=== PATIENT | female | born 2000 | race Hispanic/Latino ===

== ENCOUNTER 2023-05-11 07:29 | Outpatient (CLI) | payer OTHER | END 2023-05-11 07:30 | disposition home or self-care (01) | LOC: CSHULT 07:29 | PROVIDERS: ATTEND Nurse Practitioner Women's Health | DX: O09.892 Supervision of other high risk pregnancies, second trimester (principal); Z3A.20 20 weeks gestation of pregnancy | CPT/HCPCS: 76805 ==

== ENCOUNTER 2023-08-11 06:03 | Observation (INO) | payer OTHER ==
[2023-08-11] MEDS ORDERED: Ondansetron PF 4 MG/2 ML Vial ONE (07:08)
[2023-08-11 07:15] VITALS: BMI 46.4
[2023-08-11 07:51] LABS: Fetal Membranes Rupture No Membranes Rupture (No Rupture)
[2023-08-11] MEDS ORDERED: Ondansetron PF 4 MG/2 ML Vial IVP PRN ×2 (07:52→09:21)
[2023-08-11] MEDS ORDERED: hydrALAZINE 20 MG/ML VIAL SLOW IVP PRN ×2 (07:52→09:21)
[2023-08-11] MEDS ORDERED: Lactated Ringer's 1,000 ML IV SCH (08:00)
[2023-08-11] MEDS ORDERED: Promethazine HCl 25 MG/ML VIAL IVPB PRN (09:21)
[2023-08-11] MEDS ORDERED: Acetaminophen 500 MG TAB PO PRN (09:21)
[2023-08-11] MEDS ORDERED: fentaNYL 50 mcg/mL 1 mL Vial SLOW IVP PRN (09:21)
[2023-08-11 10:46] LABS: #Eosinphils 0.1 10x3/uL (0.0-0.5); #Monocytes 0.7 10x3/uL (0.0-1.1); #Neutrophils 10.6 10x3/uL (1.5-8.4); %Basophils 0.2 % (0.0-2.0); %Eosinophils 0.5 % (0.0-6.0); %Lymphocytes 13.9 % (18.0-47.0); %Monocytes 5.1 % (0.0-10.0); %Neutrophils 79.6 % (40.0-75.0); Hematocrit 38.6 % (34.9-44.5); Hemoglobin 12.9 g/dL (12.0-15.5); Mean Corpuscular HGB CONC 33.4 g/dL (32.0-36.0); Mean Corpuscular Hemoglobin 28.4 pg (27.0-33.0); Mean Corpuscular Volume 84.8 fl (81.6-98.3); Mean Platelet Volume 12.2 fl (7.4-10.4); Platelet Count 225 10x3/uL (150-450); RBC Distribution Width 13.6 % (11.5-14.5); Red Blood Cell (RBC) Count 4.55 10x6/uL (3.90-5.03); White Blood Cell (WBC) Count 13.2 10x3/uL (3.5-10.5)
[2023-08-11 10:49] LABS: ALT (SGPT) 32 U/L (8-55); AST (SGOT) 21 U/L (5-34); Albumin 3.3 g/dL (3.5-5.0); Alkaline Phosphatase 231 U/L (40-110); Anion Gap 16 mmol/L (10-20); BUN (Urea Nitrogen) 4 mg/dL (7.0-18.7); Bilirubin, Total 0.2 mg/dL (0.2-1.2); Calc. Creatinine Clearance 281 mL/min (70-130); Calcium 8.7 mg/dL (7.8-10.44); Carbon Dioxide 19 mmol/L (22-29); Chloride 107 mmol/L (98-107); Estimated GFR 131; Globulin 2.9 g/dL (2.4-3.5); Glucose 112 mg/dL (70-105); Potassium 4.1 mmol/L (3.5-5.1); Protein, Total 6.2 g/dL (6.0-8.3); Sodium 138 mmol/L (136-145)
[2023-08-11 11:20] LABS: SARS-CoV-2 NAA Rapid Test Not Detected (NotDetected)
[2023-08-11] MEDS ORDERED: Promethazine HCl 25 MG in Sodium Chloride 0.9% 50 ML IVPB PRN (11:22)
[2023-08-11] MEDS ORDERED: Fleet Saline Enema 133 ML BOT PR SCH (11:30)
== END 2023-08-11 14:35 | disposition home health service (06) ==
LOC: CSHLD/OP 06:03 → CSHLD 10:38
PROVIDERS: ADMIT Family Medicine; ATTEND Family Medicine
DX: O99.891 Other specified diseases and conditions complicating pregnancy (principal); R10.84 Generalized abdominal pain; O13.3 Gestational [pregnancy-induced] hypertension without significant proteinuria, third trimester; O21.2 Late vomiting of pregnancy; O24.410 Gestational diabetes mellitus in pregnancy, diet controlled; O99.213 Obesity complicating pregnancy, third trimester; E66.01 Morbid (severe) obesity due to excess calories; O34.211 Maternal care for low transverse scar from previous cesarean delivery; Z79.899 Other long term (current) drug therapy; Z91.010 Allergy to peanuts; Z88.2 Allergy status to sulfonamides; Z3A.33 33 weeks gestation of pregnancy
CPT/HCPCS: 76705; 76815; 76819; 80053; 83690; 84112; 85025; J2405

== ENCOUNTER 2023-09-02 10:05 | Inpatient (IN) | payer OTHER ==
[2023-09-01 13:06] LABS: Hematocrit 39.3 % (34.9-44.5); Hemoglobin 13.3 g/dL (12.0-15.5); Platelet Count 202 10x3/uL (150-450)
[2023-09-01 13:34] LABS: Syphilis Antibody Nonreactive (Nonreactive); Syphilis Antibody Index 0.08 S/CO (<1.00 Non-Reactive)
[2023-09-01 13:35] LABS: HBSAg Index 0.16 S/CO (0-0.99); Hep B Surf Ag Non-Reactive S/CO (NonReactive)
[2023-09-02] MEDS ORDERED: Oxytocin 30 units/NS 500 ML 500 ML IV SCH (10:41)
[2023-09-02] MEDS ORDERED: Azithromycin 500 MG in Sodium Chloride 0.9% 250 ML 250 ML IVPB SCH (10:41)
[2023-09-02] MEDS ORDERED: Bicitra 30 ML UDCUP PO PRN (10:41)
[2023-09-02] MEDS ORDERED: Methylergonovine 0.2 MG/ML VIAL IM PRN (10:41)
[2023-09-02] MEDS ORDERED: CEFAZOLIN 3 GM, Admixture Fee 1 EACH in Sodium Chloride 0.9% 100 ML IVPB SCH (10:41)
[2023-09-02] MEDS ORDERED: Lactated Ringer's 1,000 ML IV SCH (10:41)
[2023-09-02] MEDS ORDERED: hydrALAZINE 20 MG/ML VIAL SLOW IVP PRN ×2 (10:41→16:42)
[2023-09-02] MEDS ORDERED: Carboprost 250 MCG/ML AMP IM PRN (10:41)
[2023-09-02] MEDS ORDERED: Promethazine HCl 25 MG/ML VIAL IM PRN ×3 (10:41→16:42)
[2023-09-02] MEDS ORDERED: Famotidine/PF 20 mg/2ml Vial SLOW IVP PRN (10:41)
[2023-09-02] MEDS ORDERED: Misoprostol 200 MCG TAB PR PRN (10:41)
[2023-09-02] MEDS ORDERED: Diphenoxylate HCl/Atropine Tablet PO PRN (10:41)
[2023-09-02] MEDS ORDERED: Tranexamic Acid 1,000 MG/10 ML VIAL IVP PRN (10:41)
[2023-09-02] MEDS ORDERED: Ondansetron PF 4 MG/2 ML Vial IVP PRN ×4 (10:41→16:42)
[2023-09-02 10:46] VITALS: BMI 45.3
[2023-09-02] MEDS ORDERED: Ondansetron PF 4 MG/2 ML Vial ONE (11:38)
[2023-09-02] MEDS ORDERED: Oxytocin 10 UNITS/ML VIAL ONE (11:38)
[2023-09-02] MEDS ORDERED: Morphine PF 10 MG/10 ML VIAL ONE (11:38)
[2023-09-02] MEDS ORDERED: PHENYLEPHRINE-NS 100 MCG/ML 10 ML SYRINGE ONE ×2 (11:38→13:07)
[2023-09-02] MEDS ORDERED: Dexamethasone 4 mg/ml Vial ONE (11:38)
[2023-09-02] MEDS ORDERED: Ketorolac Tromethamine 30 MG (1 mL) VIAL IVP PRN (11:47)
[2023-09-02] MEDS ORDERED: fentaNYL 50 mcg/mL 1 mL Vial SLOW IVP PRN (11:47)
[2023-09-02] MEDS ORDERED: Naloxone HCl 0.4 mg/ml Vial IVP PRN ×2 (11:47)
[2023-09-02] MEDS ORDERED: Naloxone HCl 0.4 mg/ml Vial IV PRN (11:47)
[2023-09-02] MEDS ORDERED: diphenhydrAMINE 50 MG/ML VIAL IVP PRN (11:47)
[2023-09-02] MEDS ORDERED: Promethazine HCl 25 MG SUPP PR PRN (11:47)
[2023-09-02] MEDS ORDERED: Moisturizing Cream (Eucerin) 113 GM JAR TOP PRN (11:47)
[2023-09-02] MEDS ORDERED: Meperidine HCl/PF 25 MG (1 mL) VIAL SLOW IVP PRN (11:47)
[2023-09-02] MEDS ORDERED: Ketorolac Tromethamine 30 MG (1 mL) VIAL IVP SCH (12:00)
[2023-09-02] MEDS ORDERED: Communication Order-Pharmacy FS SCH (12:00)
[2023-09-02] MEDS ORDERED: Hepatitis B Vaccine 10 MCG/0.5 ML SYR ONE (13:31)
[2023-09-02] MEDS ORDERED: Bisacodyl 10 MG SUPP PR PRN (16:42)
[2023-09-02] MEDS ORDERED: diphenhydrAMINE 25 MG CAP PO PRN (16:42)
[2023-09-02] MEDS ORDERED: Lanolin Ointment 7 GM TUBE TOP PRN (16:42)
[2023-09-02] MEDS ORDERED: Meperidine HCl/PF 25 MG (1 mL) VIAL IM PRN (16:42)
[2023-09-02] MEDS ORDERED: Boostrix 0.5 ML (Tdap) VIAL (>/=7 yrs of age) IM ONE (16:42)
[2023-09-02] MEDS: Ketorolac Tromethamine 30 MG (1 mL) VIAL IVP SCH (20:15)
[2023-09-02] MEDS: Simethicone Chewable 80 MG TAB PO PRN (21:33)
[2023-09-02] MEDS: Docusate 100 MG CAP PO SCH (21:33)
[2023-09-02] MEDS: Ferrous Sulfate 325 MG TAB PO SCH (21:51)
[2023-09-03] MEDS: Ketorolac Tromethamine 30 MG (1 mL) VIAL IVP SCH ×3 (01:56→13:44)
[2023-09-03 03:36] LABS: Hematocrit 32.7 % (34.9-44.5); Hemoglobin 11.1 g/dL (12.0-15.5); Mean Corpuscular HGB CONC 33.9 g/dL (32.0-36.0); Mean Corpuscular Hemoglobin 27.5 pg (27.0-33.0); Mean Corpuscular Volume 80.9 fl (81.6-98.3); Mean Platelet Volume 12.2 fl (7.4-10.4); Platelet Count 195 10x3/uL (150-450); RBC Distribution Width 13.2 % (11.5-14.5); Red Blood Cell (RBC) Count 4.04 10x6/uL (3.90-5.03); White Blood Cell (WBC) Count 14.7 10x3/uL (3.5-10.5)
[2023-09-03] MEDS: Prenatal Vitamin 1 TAB PO SCH (08:19)
[2023-09-03] MEDS: Docusate 100 MG CAP PO SCH ×2 (08:19→22:04)
[2023-09-03] MEDS: Ferrous Sulfate 325 MG TAB PO SCH ×2 (09:08→22:08)
[2023-09-03] MEDS: HYDROcodone/Acetaminophen 5/325 mg Tablet PO PRN ×3 (11:25→22:05)
[2023-09-03] MEDS: NIFEdipine XL 30 MG ER.TAB PO SCH (16:10)
[2023-09-03] MEDS: Ibuprofen 800 MG TAB PO SCH (22:04)
[2023-09-03] MEDS: Simethicone Chewable 80 MG TAB PO PRN (22:04)
[2023-09-04] MEDS: Ibuprofen 800 MG TAB PO SCH ×3 (05:15→21:33)
[2023-09-04] MEDS: HYDROcodone/Acetaminophen 5/325 mg Tablet PO PRN ×4 (05:16→19:42)
[2023-09-04] MEDS: Docusate 100 MG CAP PO SCH ×2 (09:28→21:33)
[2023-09-04] MEDS: Prenatal Vitamin 1 TAB PO SCH (09:28)
[2023-09-04] MEDS: NIFEdipine XL 30 MG ER.TAB PO SCH (09:29)
[2023-09-04] MEDS: Ferrous Sulfate 325 MG TAB PO SCH ×2 (10:45→19:12)
[2023-09-04] MEDS ORDERED: Milk Of Magnesia 30 ML UDCUP PO SCH (20:15)
[2023-09-05] MEDS: HYDROcodone/Acetaminophen 5/325 mg Tablet PO PRN ×2 (04:40→12:53)
[2023-09-05] MEDS: Ibuprofen 800 MG TAB PO SCH ×2 (06:14→12:52)
[2023-09-05] MEDS ORDERED: Milk Of Magnesia 30 ML UDCUP PO SCH (09:00)
[2023-09-05] MEDS: Prenatal Vitamin 1 TAB PO SCH (10:24)
[2023-09-05] MEDS: Docusate 100 MG CAP PO SCH (10:24)
[2023-09-05] MEDS: Ferrous Sulfate 325 MG TAB PO SCH (10:24)
[2023-09-05] MEDS: NIFEdipine XL 30 MG ER.TAB PO SCH (10:24)
[2023-09-05 10:25] VITALS: BP 118/65
[2023-09-05 14:32] VITALS: TEMP 98.4
== END 2023-09-05 14:27 | disposition home or self-care (01) | DRG 787 ==
LOC: CSHLD 10:05 → CSHPP 16:05
PROVIDERS: ADMIT Family Medicine; ATTEND Family Medicine
PROC: 10D00Z1 Extraction of Products of Conception, Low, Open Approach (ICD-10-PCS; principal; 2023-09-02)
PROC: 3E0P05Z Introduction of Adhesion Barrier into Female Reproductive, Open Approach (ICD-10-PCS; 2023-09-02)
DX: O34.211 Maternal care for low transverse scar from previous cesarean delivery (principal); O26.643 Intrahepatic cholestasis of pregnancy, third trimester; O13.4 Gestational [pregnancy-induced] hypertension without significant proteinuria, complicating childbirth; O24.429 Gestational diabetes mellitus in childbirth, unspecified control; E78.79 Other disorders of bile acid and cholesterol metabolism; K76.89 Other specified diseases of liver; F32.A Depression, unspecified; O99.344 Other mental disorders complicating childbirth; O14.94 Unspecified pre-eclampsia, complicating childbirth; E66.9 Obesity, unspecified; O99.214 Obesity complicating childbirth; Z79.82 Long term (current) use of aspirin; Z79.899 Other long term (current) drug therapy; Z3A.37 37 weeks gestation of pregnancy; Z37.0 Single live birth; Z91.010 Allergy to peanuts; Z88.8 Allergy status to other drugs, medicaments and biological substances
CPT/HCPCS: 36415; 51702; 85014; 85018; 85027; 85049; 86780; 86850; 86900; 86901; 87340; J1100; J1885; J2175; J2274; J2405; J2590